=== PATIENT | male | born 2000 | race Caucasian/White ===

== ENCOUNTER 2021-03-02 19:25 | Emergency (ER) | payer OTHER ==
[~2021-03-02] VITALS: Ht 177.8 cm; Wt 104.3 kg
[2021-03-02 19:30] VITALS: BP 118/75
--- NOTE | 2021-03-02 19:30 | NUR ---
TO [facility]ENT AMBULATORY
--- NOTE | 2021-03-02 20:00 | NUR ---
SEEN AND EXAMINED BY AIRNA, WITH ORDERS, CARRIED OUT.
[2021-03-02 21:30] VITALS: BP 120/78
--- NOTE | 2021-03-02 21:30 | NUR ---
Patient discharged with v/s stable. Written and verbal after care instructions given and explained. Patient verbalized understanding. Ambulatory with steady gait. All questions addressed prior to discharge. Advised to follow up with PMD.
== END 2021-03-02 21:30 | disposition home or self-care (01) ==
LOC: MED 19:25
DX: U07.1 COVID-19 (principal); R55 Syncope and collapse; F12.90 Cannabis use, unspecified, uncomplicated
CPT/HCPCS: 71045; 93005; 99283

== ENCOUNTER 2021-09-25 02:24 | Emergency (ER) | payer OTHER ==
[~2021-09-25] VITALS: Ht 177.8 cm; Wt 99.8 kg
[2021-09-25 02:26] VITALS: BP 114/72
--- NOTE | 2021-09-25 02:31 | NUR ---
TO BED 3 FROM TRIAGE
--- NOTE | 2021-09-25 02:35 | NUR ---
STATES WAS HAVING INTERCOURSE WITH PARTNER AND FELT A RIPPING SENSATION ON HIS PENIS. NOTED HEAVY BLEEDING INITIALLY AND CAME TO ED. STATES HE SOAKED A NAPKING WIHT BLOOD AT HOME, CRISTHIAN HAS TOWEL ON AND DENIES ANY ACTIVE BLEEDING. SMALL STAINS OF BLOOD NOTED TO TOWEL. NO OTHER OCMPLAINTS OR CONECRNS AT THIS TIME
--- NOTE | 2021-09-25 03:07 | NUR ---
PATIENT CLEARED FOR DISHCARGE AT THIS TIME. ADVISED TO FOLLOW UP WITH PCP AND RETURN IF CONDIION WORSESN. NO OTHER VOMPLAITNS OR CONECRNS AT THIS TIME FOLLOWINF DSICHARGE TEACHING
== END 2021-09-25 03:07 | disposition home or self-care (01) ==
LOC: MED 02:24
DX: S31.20XA Unspecified open wound of penis, initial encounter (principal); X58.XXXA Exposure to other specified factors, initial encounter; Y93.89 Activity, other specified; Y92.89 Other specified places as the place of occurrence of the external cause; Y99.8 Other external cause status
CPT/HCPCS: 99281

== ENCOUNTER 2022-01-10 11:46 | Emergency (ER) | payer OTHER ==
[~2022-01-10] VITALS: Ht 180.3 cm; Wt 101.6 kg
[2022-01-10 11:49] VITALS: BP 137/73
[2022-01-10] MEDS ORDERED: DOXY-690 PO (12:12)
[2022-01-10] MEDS ORDERED: cefTRIAXone 500 MG in LIDOCAINE MPF 1% 1 ML IM ONE (12:15)
--- NOTE | 2022-01-10 12:41 | NUR ---
21/M PRESENTS TO ED REQUESTING STD CHECK. REPORTS HIS PARTNER NOTIFIED HIM YESTERDAY THAT SHE HAS CHLAMYDIA, PATIENT DENIES DYSURIA, DISCHARGE OR ANY OTHER MEDICAL COMPLAINT AT THIS TIME.
[2022-01-10] MEDS ORDERED: cefTRIAXone 500 MG VIAL ONE (12:51)
[2022-01-10] MEDS ORDERED: LIDOCAINE MPF 1% 5 ML ONE (12:52)
[2022-01-10 13:07] VITALS: BP 137/73
--- NOTE | 2022-01-10 13:08 | NUR ---
Patient discharged with v/s stable. Written and verbal after care instructions ABOUT CHLAMYDIA TEST given and explained. Patient alert, oriented and verbalized understanding of instructions. Ambulatory with steady gait. All questions addressed prior to discharge. ID band removed. Patient advised to follow up with PMD. Rx of VIBRAMYCIN given. Patient educated on indication of medication including possible reaction and side effects. Opportunity to ask questions provided and answered.
== END 2022-01-10 13:08 | disposition home or self-care (01) ==
LOC: MED 11:46
DX: Z11.3 Encounter for screening for infections with a predominantly sexual mode of transmission (principal); F12.90 Cannabis use, unspecified, uncomplicated; Z72.89 Other problems related to lifestyle
CPT/HCPCS: 87491; 96372; 99283; J0696; J2001